=== PATIENT | female | born 1930 | race Caucasian/White ===

== ENCOUNTER 2017-11-05 17:29 | Emergency (ER) | payer MEDICARE, BC ==
[~2017-11-05] VITALS: Ht 152.4 cm; Wt 72.0 kg
[~2017-11-05 17:29] MED LIST: HYDR-569 PO; MELO15TA13 PO
[2017-11-05 18:35] LABS: CLARITY,URINE CLEAR (Clear); COLOR,URINE YELLOW (Yellow); GLUCOSE, URINE NEGATIVE (Neg); KETONES,URINE NEGATIVE (Neg); LEUKOCYTE ESTERASE ,URINE TRACE (Neg); NITRITES, URINE POSITIVE (Neg); OCCULT BLOOD,URINE NEGATIVE (Neg); PH,URINE 7.5 (4.8-8.0); PROTEIN,URINE NEGATIVE (Neg); UROBILINOGEN,URINE 0.2 E.U/dL (0.2-1.0)
[2017-11-05 18:36] LABS: UA COLLECTION TYPE CLN CATCH MIDSTREAM
[2017-11-05] MEDS ORDERED: CEPH-572 PO (18:42)
[2017-11-05] MEDS ORDERED: PHEN-716 PO (18:42)
[2017-11-05 18:44] LABS: BACTERIA,URINE FEW /HPF (Neg); RBC,URINE NONE SEEN /HPF (0-2); SQUAMOUS EPITHELIAL CELL,UR MANY /LPF (FEW); WBC,URINE 0-4 /HPF (0-4)
[2017-11-05] MEDS ORDERED: phenazopyridine 100mg tablet PO ONE (18:45)
[2017-11-05] MEDS ORDERED: cephalexin 500mg capsule PO ONE (18:45)
[2017-11-05] MEDS ORDERED: ONDA4TAB9 PO (18:47)
[2017-11-05] MEDS ORDERED: TRAM50TA2 PO (18:47)
[2017-11-05 19:13] VITALS: BP 157/80
== END 2017-11-05 19:10 | disposition home or self-care (01) ==
LOC: ER 17:30
DX: N39.0 Urinary tract infection, site not specified (principal); M54.5 Low back pain; G89.29 Other chronic pain; I10 Essential (primary) hypertension; E03.9 Hypothyroidism, unspecified; Z90.710 Acquired absence of both cervix and uterus
CPT/HCPCS: 81001; 87088; 99284

== ENCOUNTER 2017-11-08 14:13 | Emergency (ER) | payer MEDICARE, BC ==
[~2017-11-08] VITALS: Ht 147.3 cm; Wt 72.0 kg
[~2017-11-08 14:13] MED LIST changes: +CEPH-572 PO; +ONDA4TAB9 PO; +PHEN-716 PO; +TRAM50TA2 PO
[2017-11-08] MEDS ORDERED: CIPR-230 PO (16:41)
[2017-11-08 16:50] VITALS: BP 139/78
== END 2017-11-08 16:51 | disposition home or self-care (01) ==
LOC: ER 14:14
DX: N39.0 Urinary tract infection, site not specified (principal); T36.1X5A Adverse effect of cephalosporins and other beta-lactam antibiotics, initial encounter; N12 Tubulo-interstitial nephritis, not specified as acute or chronic; I10 Essential (primary) hypertension; E03.9 Hypothyroidism, unspecified; Y92.89 Other specified places as the place of occurrence of the external cause; Z98.890 Other specified postprocedural states
CPT/HCPCS: 99283

== ENCOUNTER 2017-12-01 03:25 | Emergency (ER) | payer MEDICARE, BC ==
[~2017-12-01] VITALS: Ht 152.4 cm; Wt 73.0 kg
[~2017-12-01 03:25] MED LIST changes: -CEPH-572 PO; +CIPR-230 PO
[2017-12-01 03:58] LABS: BASOPHILS % (AUTO) 0.7 % (0-1); EOSINOPHILS # (AUTO) 0.1 X10'3 (0-0.9); HEMATOCRIT 40.8 % (35.0-45.0); LYMPHOCYTES # (AUTO) 1.3 X10'3 (1.1-4.8); LYMPHOCYTES % (AUTO) 25.9 % (21-51); MEAN CORPUSCULAR HGB CONC 34.3 % (33.0-36.5); MEAN CORPUSCULAR VOLUME 87.6 FL (78-98); MEAN PLATELET VOLUME 7.4 FL (7.4-10.4); MONOCYTES # (AUTO) 0.6 X10'3 (0-0.9); NEUTROPHILS # (AUTO) 2.8 X10'3 (1.8-7.7); NEUTROPHILS % (AUTO) 57.4 % (42-75); PLATELET COUNT 205 X10'3 (140-440); RED BLOOD COUNT 4.66 X10'6 (4.20-5.60); RED CELL DISTRIBUTION WIDTH 13.9 % (11.5-14.5); WHITE BLOOD COUNT 4.9 X10'3 (4.5-11.0)
[2017-12-01 04:22] LABS: ALANINE AMINOTRANSFERASE 25 U/L (12-78); ALBUMIN 3.7 G/DL (3.4-5.0); ALBUMIN/GLOBULIN RATIO 1.2 (1.1-1.5); ALKALINE PHOSPHATASE 73 IU/L (46-116); ANION GAP 10 (8-16); ASPARTATE AMINO TRANSFERASE 23 U/L (10-37); BILIRUBIN,TOTAL 0.4 MG/DL (0.1-1.0); BLOOD UREA NITROGEN 19 MG/DL (7-18); BUN/CREATININE RATIO 23.2 (6.6-38.0); CALCIUM 8.9 MG/DL (8.5-10.1); CHLORIDE 105 MMOL/L (99-107); CREATININE 0.82 MG/DL (0.40-0.90); ETHANOL < 0.010 GM/DL (0.0-0.010); GLUCOSE 101 MG/DL (70-104); MAGNESIUM 1.9 MG/DL (1.5-2.4); SODIUM 141 MMOL/L (135-145); TOTAL CARBON DIOXIDE 26.3 MMOL/L (24-32); TOTAL PROTEIN 6.7 G/DL (6.4-8.2); eGFR 66 ML/MIN
[2017-12-01 04:24] LABS: CLARITY,URINE CLEAR (Clear); GLUCOSE, URINE NEGATIVE (Neg); KETONES,URINE NEGATIVE (Neg); LEUKOCYTE ESTERASE ,URINE LARGE (Neg); NITRITES, URINE POSITIVE (Neg); OCCULT BLOOD,URINE TRACE-INTACT (Neg); PROTEIN,URINE NEGATIVE (Neg)
[2017-12-01 04:29] LABS: UA COLLECTION TYPE CLN CATCH MIDSTREAM
[2017-12-01 04:30] LABS: COLOR,URINE DARK YELLOW (Yellow)
[2017-12-01 04:31] LABS: BACTERIA,URINE 3+ /HPF (Neg); RBC,URINE 0-2 /HPF (0-2); WBC,URINE 50-100 /HPF (0-4)
[2017-12-01 04:32] LABS: MUCUS STRANDS NONE SEEN /LPF (Neg); SQUAMOUS EPITHELIAL CELL,UR FEW /LPF (FEW); WBC CLUMPS,URINE FEW /HPF (NEGATIVE)
[2017-12-01] MEDS ORDERED: ciprofloxacin 250mg tablet PO ONE (04:40)
[2017-12-01] MEDS ORDERED: CIPR-230 PO (04:40)
[2017-12-01 04:56] VITALS: BP 153/62
== END 2017-12-01 04:58 | disposition home or self-care (01) ==
LOC: ER 03:25
DX: N39.0 Urinary tract infection, site not specified (principal); I10 Essential (primary) hypertension; E03.9 Hypothyroidism, unspecified; Z90.710 Acquired absence of both cervix and uterus; Z98.890 Other specified postprocedural states; Z79.899 Other long term (current) drug therapy
CPT/HCPCS: 36415; 71045; 80053; 80320; 81001; 83735; 84443; 84484; 85025; 87077; 87088; 87186; 93005; 99285

== ENCOUNTER 2018-10-24 03:06 | Emergency (ER) | payer MEDICARE, BC ==
[~2018-10-24] VITALS: Ht 152.4 cm; Wt 63.1 kg
[~2018-10-24 03:06] MED LIST changes: -CIPR-230 PO; +HYDR-4383 PO; -HYDR-569 PO; -ONDA4TAB9 PO; -TRAM50TA2 PO
[2018-10-24 04:46] LABS: BASOPHILS % (AUTO) 0.4 % (0-1); EOSINOPHILS # (AUTO) 0.1 X10'3 (0-0.9); EOSINOPHILS % (AUTO) 2.3 % (0-6); HEMATOCRIT 43.2 % (35.0-45.0); HEMOGLOBIN 14.4 g/dl (12.0-16.0); LYMPHOCYTES # (AUTO) 1.1 X10'3 (1.1-4.8); LYMPHOCYTES % (AUTO) 22.7 % (21-51); MEAN CORPUSCULAR HEMOGLOBIN 30.1 PG (27.0-31.0); MEAN CORPUSCULAR HGB CONC 33.4 % (33.0-36.5); MEAN CORPUSCULAR VOLUME 90.1 FL (78-98); MEAN PLATELET VOLUME 7.4 FL (7.4-10.4); MONOCYTES # (AUTO) 0.7 X10'3 (0-0.9); MONOCYTES % (AUTO) 15.4 % (2-12); NEUTROPHILS # (AUTO) 2.8 X10'3 (1.8-7.7); NEUTROPHILS % (AUTO) 59.2 % (42-75); PLATELET COUNT 224 X10'3 (140-440); RED BLOOD COUNT 4.79 X10'6 (4.20-5.60); RED CELL DISTRIBUTION WIDTH 13.4 % (11.5-14.5); WHITE BLOOD COUNT 4.8 X10'3 (4.5-11.0)
[2018-10-24 04:48] LABS: ALANINE AMINOTRANSFERASE 34 U/L (12-78); ALBUMIN 3.7 G/DL (3.4-5.0); ALBUMIN/GLOBULIN RATIO 1.2 (1.1-1.5); ALKALINE PHOSPHATASE 66 IU/L (46-116); ANION GAP 12 (8-16); ASPARTATE AMINO TRANSFERASE 30 U/L (10-37); BILIRUBIN,TOTAL 0.4 MG/DL (0.1-1.0); BLOOD UREA NITROGEN 19 MG/DL (7-18); BUN/CREATININE RATIO 25.7 (6.6-38.0); CALCIUM 8.9 MG/DL (8.5-10.1); CHLORIDE 104 MMOL/L (99-107); CREATININE 0.74 MG/DL (0.40-0.90); GLUCOSE 104 MG/DL (70-104); POTASSIUM 3.7 MMOL/L (3.5-5.1); SODIUM 142 MMOL/L (135-145); TOTAL CARBON DIOXIDE 26.1 MMOL/L (24-32); TOTAL PROTEIN 6.8 G/DL (6.4-8.2); eGFR 74 ML/MIN
[2018-10-24 04:53] LABS: PARTIAL THROMBOPLASTIN TIME 28 SECONDS (22-32); PROTHROMBIN TIME 10.1 SECONDS (9.0-12.0)
[2018-10-24 05:46] VITALS: BP 144/75
== END 2018-10-24 05:49 | disposition home or self-care (01) ==
LOC: ER 03:06
DX: J22 Unspecified acute lower respiratory infection (principal); I50.9 Heart failure, unspecified; I11.0 Hypertensive heart disease with heart failure; E03.9 Hypothyroidism, unspecified; Z90.710 Acquired absence of both cervix and uterus; Z98.890 Other specified postprocedural states; Z79.899 Other long term (current) drug therapy
CPT/HCPCS: 36415; 71045; 80053; 83605; 83880; 84145; 84484; 85025; 85379; 85610; 85730; 87040; 93005; 99284

== ENCOUNTER 2020-04-15 09:37 | Emergency (ER) | payer MEDICARE, BC ==
[~2020-04-15] VITALS: Ht 152.4 cm; Wt 128.0 kg
[2020-04-15 10:21] LABS: BASOPHILS % (AUTO) 0.8 % (0-1); EOSINOPHILS # (AUTO) 0.1 X10'3 (0-0.9); EOSINOPHILS % (AUTO) 3.3 % (0-6); HEMATOCRIT 42.7 % (35.0-45.0); HEMOGLOBIN 14.1 g/dl (12.0-16.0); LYMPHOCYTES # (AUTO) 1.1 X10'3 (1.1-4.8); LYMPHOCYTES % (AUTO) 29.7 % (21-51); MEAN CORPUSCULAR HEMOGLOBIN 29.9 PG (27.0-31.0); MEAN CORPUSCULAR VOLUME 90.7 FL (78-98); MEAN PLATELET VOLUME 7.5 FL (7.4-10.4); MONOCYTES # (AUTO) 0.7 X10'3 (0-0.9); MONOCYTES % (AUTO) 18.8 % (2-12); NEUTROPHILS # (AUTO) 1.7 X10'3 (1.8-7.7); NEUTROPHILS % (AUTO) 47.4 % (42-75); PLATELET COUNT 204 X10'3 (140-440); RED CELL DISTRIBUTION WIDTH 13.7 % (11.5-14.5); WHITE BLOOD COUNT 3.6 X10'3 (4.5-11.0)
[2020-04-15] MEDS ORDERED: METO50TA17 PO (10:29)
[2020-04-15] MEDS ORDERED: SYN0.088T PO (10:29)
[2020-04-15] MEDS ORDERED: CETI10CA PO (10:29)
[2020-04-15 10:31] LABS: ALANINE AMINOTRANSFERASE 25 U/L (12-78); ALBUMIN 3.6 G/DL (3.4-5.0); ALBUMIN/GLOBULIN RATIO 1.2 (1.1-1.5); ALKALINE PHOSPHATASE 63 IU/L (46-116); ANION GAP 7 (8-16); ASPARTATE AMINO TRANSFERASE 27 U/L (10-37); BILIRUBIN,TOTAL 0.5 MG/DL (0.1-1.0); BLOOD UREA NITROGEN 20 MG/DL (7-18); CALCIUM 8.8 MG/DL (8.5-10.1); CHLORIDE 106 MMOL/L (99-107); GLUCOSE 91 MG/DL (70-104); PARTIAL THROMBOPLASTIN TIME 30 SECONDS (22-32); POTASSIUM 4.3 MMOL/L (3.5-5.1); SODIUM 143 MMOL/L (135-145); TOTAL CARBON DIOXIDE 30.5 MMOL/L (24-32); TOTAL PROTEIN 6.6 G/DL (6.4-8.2); eGFR 68 ML/MIN
[2020-04-15] MEDS ORDERED: MULT-1085 PO (10:33)
[2020-04-15] MEDS ORDERED: NAPR220T67 PO (10:33)
[2020-04-15] MEDS ORDERED: APIX5TAB3 PO (10:33)
[2020-04-15] MEDS ORDERED: CALC-1197 PO (10:33)
[2020-04-15] MEDS ORDERED: MAGN400C PO (10:33)
[2020-04-15] MEDS ORDERED: ACET-1008 PO (10:33)
[2020-04-15] MEDS ORDERED: ASPI-1265 PO (10:33)
[2020-04-15] MEDS ORDERED: PROP1DRO7 OP (10:33)
[2020-04-15] MEDS ORDERED: OLME5TAB3 PO (10:33)
[2020-04-15] MEDS ORDERED: LACT1CAP65 PO (10:33)
[2020-04-15 10:35] LABS: TROPONIN I < 0.04 NG/ML (0.0-0.05)
[2020-04-15 11:24] LABS: TOTAL CELLS COUNTED 100
[2020-04-15 11:26] LABS: ELLIPTOCYTES FEW; PLATELET ESTIMATE NORMAL; TEAR DROP CELLS FEW
[2020-04-15 11:49] LABS: CLARITY,URINE CLEAR (Clear); COLOR,URINE YELLOW (Yellow); GLUCOSE, URINE NEGATIVE (Neg); KETONES,URINE NEGATIVE (Neg); LEUKOCYTE ESTERASE ,URINE NEGATIVE (Neg); NITRITES, URINE NEGATIVE (Neg); OCCULT BLOOD,URINE NEGATIVE (Neg); PROTEIN,URINE NEGATIVE (Neg); UROBILINOGEN,URINE 0.2 E.U/dL (0.2-1.0)
[2020-04-15 11:55] LABS: UA COLLECTION TYPE STRAIGHT CATH
[2020-04-15 14:28] VITALS: BP 132/59
== END 2020-04-15 14:33 | disposition home or self-care (01) ==
LOC: ER 09:38
DX: M79.602 Pain in left arm (principal); M79.605 Pain in left leg; R29.810 Facial weakness; I50.9 Heart failure, unspecified; I11.0 Hypertensive heart disease with heart failure; E03.9 Hypothyroidism, unspecified; Z86.718 Personal history of other venous thrombosis and embolism; Z00.8 Encounter for other general examination; Z98.890 Other specified postprocedural states; Z90.710 Acquired absence of both cervix and uterus; Z79.01 Long term (current) use of anticoagulants; Z79.82 Long term (current) use of aspirin; Z79.899 Other long term (current) drug therapy
CPT/HCPCS: 70450; 71045; 80053; 81003; 84484; 85025; 85610; 85730; 93005; 99285

== ENCOUNTER 2021-07-05 16:06 | Emergency (ER) | payer BC ==
[~2021-07-05] VITALS: Ht 152.4 cm; Wt 80.0 kg
[~2021-07-05 16:06] MED LIST changes: +ACET-1008 PO; +APIX5TAB3 PO; +ASPI-1265 PO; +CALC-1215 PO; +CETI10CA PO; -HYDR-4383 PO; +LACT1CAP65 PO; +MAGN400C PO; -MELO15TA13 PO; +METO50TA17 PO; +MULT-1085 PO; +NAPR220T67 PO; +OLME5TAB3 PO; -PHEN-716 PO; +PROP1DRO7 OP; +SYN0.088T PO
[2021-07-05] MEDS ORDERED: [UNRECOGNIZED DRUG - OTHER] IV ONE ×6 (17:00)
[2021-07-05 19:22] VITALS: BP 156/70
== END 2021-07-05 19:23 | disposition home or self-care (01) ==
LOC: ER 16:06
DX: U07.1 COVID-19 (principal); R05 Cough; I11.0 Hypertensive heart disease with heart failure; I50.9 Heart failure, unspecified; E03.9 Hypothyroidism, unspecified; Z87.440 Personal history of urinary (tract) infections; Z86.718 Personal history of other venous thrombosis and embolism; Z90.710 Acquired absence of both cervix and uterus; Z98.890 Other specified postprocedural states; Z79.82 Long term (current) use of aspirin; Z79.899 Other long term (current) drug therapy
CPT/HCPCS: 99283; M0243; Q0243